=== PATIENT | male | born 1970 | race Caucasian/White ===

== ENCOUNTER 2018-06-18 15:34 | Emergency (ER) | payer MEDICAID, SELFPAY ==
[~2018-06-18] VITALS: Ht 167.6 cm; Wt 72.5 kg
[2018-06-18] MEDS ORDERED: ONDANSETRON 4MG/2ML VIAL (J2405) IV ONE (16:00)
[2018-06-18] MEDS ORDERED: MORPHINE 4 MG/ML 1ML VIAL/SYRINGE (J2270) IV ONE ×2 (16:00→17:30)
[2018-06-18 16:12] LABS: BASO % 0.5 % (0.0-1.0); EOS # 0.1 10^3/uL (0.0-0.50); EOS % 1.7 % (0.0-3.0); HEMATOCRIT 41.2 % (42.0-52.0); HEMOGLOBIN 14.3 g/dl (13.5-17.5); LYMPH # 3.5 10^3/uL (1.5-4.5); LYMPH % 45.7 % (24.0-44.0); MEAN CORPUSCULAR HEMOGLOBIN 30.9 pg (27.0-33.0); MEAN CORPUSCULAR HGB CONC 34.7 g/dl (32.0-36.5); MONO # 0.5 10^3/uL (0.0-0.8); MONO % 6.6 % (0.0-5.0); NEUTROPHILS # 3.4 10^3/uL (1.8-7.7); NEUTROPHILS % 45.4 % (36.0-66.0); PLATELET COUNT, AUTOMATED 246 10^3/uL (150-450); RED BLOOD COUNT 4.63 10^6/uL (4.30-6.10); WHITE BLOOD COUNT 7.6 10^3/uL (4.0-10.0)
[2018-06-18 16:35] LABS: BLOOD UREA NITROGEN 17 MG/DL (7-18); CARBON DIOXIDE LEVEL 26 MEQ/L (21-32); CHLORIDE LEVEL 105 MEQ/L (98-107); CREATININE FOR GFR 1.22 MG/DL (0.70-1.30); GLOMERULAR FILTRATION RATE > 60.0 (>60); GLUCOSE, FASTING 93 MG/DL (70-100); POTASSIUM SERUM 4.1 MEQ/L (3.5-5.1); SODIUM LEVEL 139 MEQ/L (136-145)
[2018-06-18] MEDS ORDERED: cefTRIAXone SOD 2 GM in D5W MINI-BAG PLUS 50 ML IV ONE (17:00)
[2018-06-18] MEDS ORDERED: KEFL500C17 PO (17:18)
[2018-06-18] MEDS ORDERED: PERC5TAB12 PO (17:18)
--- NOTE | 2018-06-18 17:26 | REP ---
LEFT FINGERS, FOUR VIEWS: HISTORY: Laceration 3rd digit. The patient is status post ORIF of fractures of the 4th and 5th metacarpals. Fixation plates and screws are present. There is no acute fracture or dislocation. The joint spaces are normal in appearance. A defect is present in the soft tissue anterior to the distal phalange of the 3rd digit. IMPRESSION: There is no acute fracture or dislocation. Electronically Signed by Sg Phelps MD 06/19/2018 08:15 A
[2018-06-18] MEDS ORDERED: PERCOCET 5MG/325MG TAB PO ONE (17:30)
[2018-06-18 18:28] VITALS: BP 122/66
== END 2018-06-18 18:33 | disposition home or self-care (01) ==
LOC: M ED 15:34
DX: S61.203A Unspecified open wound of left middle finger without damage to nail, initial encounter (principal); W31.2XXA Contact with powered woodworking and forming machines, initial encounter; Y92.89 Other specified places as the place of occurrence of the external cause; Y99.0 Civilian activity done for income or pay
CPT/HCPCS: 73140; 80048; 85025; 96374; 96375; 96376; 99284; J0696; J2270; J2405

== ENCOUNTER 2020-07-06 09:03 | Emergency (ER) | payer MEDICAID ==
[~2020-07-06] VITALS: Ht 167.6 cm; Wt 77.4 kg
[~2020-07-06 09:03] MED LIST: KEFL500C17 PO; PERC5TAB12 PO
--- NOTE | 2020-07-06 10:23 | REP ---
INDICATION: heard popping COMPARISON: None. TECHNIQUE: AP and lateral views of the right humerus. FINDINGS: The osseous structures and joint spaces are intact and normal. There is no evidence for acute fracture or dislocation. Surrounding soft tissues are unremarkable. No subcutaneous emphysema or radiodense foreign body. IMPRESSION: . No acute fracture or dislocation. <Electronically signed by Braden Devlin > 07/06/20 1028
--- NOTE | 2020-07-06 11:09 | REP ---
INDICATION: R elbow pain COMPARISON: None. TECHNIQUE: AP, lateral, bilateral oblique views of the right elbow. FINDINGS: No acute fracture or dislocation is appreciated. Joint spaces and surrounding soft tissues appear normal. Lateral view demonstrates normal positioning to the anterior and posterior fat pads without evidence for effusion/hemarthrosis. No subcutaneous emphysema or foreign body identified. IMPRESSION: No acute fracture or dislocation <Electronically signed by Braden Devlin > 07/06/20 1100
[2020-07-06 12:09] VITALS: BP 119/75
== END 2020-07-06 12:12 | disposition home or self-care (01) ==
LOC: M ED 09:03
DX: S53.401A Unspecified sprain of right elbow, initial encounter (principal); S46.211A Strain of muscle, fascia and tendon of other parts of biceps, right arm, initial encounter; X50.0XXA Overexertion from strenuous movement or load, initial encounter; Y92.89 Other specified places as the place of occurrence of the external cause; Y93.9 Activity, unspecified; Y99.9 Unspecified external cause status; F17.200 Nicotine dependence, unspecified, uncomplicated

== ENCOUNTER → 2020-09-29 | Outpatient (CLI) | payer OTHER ==
--- NOTE | 2020-09-29 15:33 | REP ---
INDICATION: RT ARM PAIN. Previous lifting injury. COMPARISON: Comparison radiographs right elbow July 06, 2020.. TECHNIQUE: Axial, coronal, and sagittal imaging planes utilized. T1 and T2 weighted scans are obtained in the usual fashion with without fat saturation. FINDINGS: Cortical and medullary bone signal intensity are normal. There is no evidence of occult fracture. No significant joint effusion is seen. Medial and lateral collateral ligaments are intact. There is some focal T2 hyperintensity at the lateral epicondyle which may reflect minimal lateral epicondylitis. Triceps and brachialis tendons are intact. However, there is evidence of a distal biceps tendon high-grade tear, 1-1.5 cm proximal to the distal insertion on the proximal radial tuberosity. There is heterogeneous fluid, some tendon discontinuity but no liana retraction, and Cris tendon edema. Study is otherwise unremarkable. IMPRESSION: High-grade distal biceps tendon tear. <Electronically signed by Te Andino > 09/29/20 1194
== END ==
LOC: M RAD 09:38
PROVIDERS: ATTEND Student in an Organized Health Care Education/Training Program
DX: M79.601 Pain in right arm (principal); S46.211A Strain of muscle, fascia and tendon of other parts of biceps, right arm, initial encounter; X58.XXXA Exposure to other specified factors, initial encounter; Y92.9 Unspecified place or not applicable